=== PATIENT | male | born 2000 ===

== ENCOUNTER 2024-07-14 15:51 | Observation (INO) | payer SELFPAY ==
[2024-07-14 16:47] LABS: #Basophils Less than 0.03 10x3/uL (0.0-0.2); #Eosinophils 0.21 10x3/uL (0.0-0.5); #Monocytes 0.34 10x3/uL (0.0-1.1); #Neutrophils 1.72 10x3/uL (1.5-8.4); %Basophils 0.6 % (0.0-2.0); %Eosinophils 6.1 % (0.0-6.0); %Lymphocytes 33.7 % (18.0-47.0); %Monocytes 9.8 % (0.0-10.0); %Neutrophils 49.5 % (40.0-75.0); Hematocrit 45.4 % (38.8-50.0); Hemoglobin 15.4 g/dL (13.5-17.5); Mean Corpuscular HGB CONC 33.9 g/dL (32.0-36.0); Mean Corpuscular Hemoglobin 30.4 pg (27.0-33.0); Mean Corpuscular Volume 89.5 fL (81.2-95.1); Mean Platelet Volume 11.3 fL (7.4-10.4); Platelet Count 145 10x3/uL (150-450); RBC Distribution Width 11.9 % (11.5-14.5); Red Blood Cell (RBC) Count 5.07 10x6/uL (4.32-5.72); White Blood Cell (WBC) Count 3.47 10x3/uL (3.5-10.5)
[2024-07-14 16:59] LABS: Actual Bicarbonate (HCO3v) 23.6 mEq/L (22-28); Analyzer IN Cardio CS ER; Base Excess -2.6 mEq/L (-2 - +2); Calcium, Ionized (venous) 1.16 mmol/L (1.16-1.32); Chloride (VBG) 96 mmol/L (98-106); Critical Notified Whom: vicsa; Hematocrit-VBG 48 % (42.0-52.0); Hemoglobin (Hb) 16.3 g/dL (13.2-17.3); Potassium (VBG) 4.14 mmol/L (3.70-5.30); Puncture Site Other Site; RapidComm Collect By LAB; Sodium 136 mmol/L (133-146); pH (venous) 7.327 (7.32-7.43)
[2024-07-14 17:04] LABS: ALT (SGPT) 20 U/L (8-55); AST (SGOT) 25 U/L (5-34); Alkaline Phosphatase 65 U/L (40-110); Anion Gap 16 mmol/L (10-20); BUN (Urea Nitrogen) 14 mg/dL (8.9-20.6); Bilirubin, Total 0.3 mg/dL (0.2-1.2); Calc. Creatinine Clearance 0 mL/min (70-130); Calcium 9.2 mg/dL (7.8-10.44); Carbon Dioxide 24 mmol/L (22-29); Chloride 99 mmol/L (98-107); Estimated GFR 84; Globulin 3.1 g/dL (2.4-3.5); Glucose 279 mg/dL (70-105); Potassium 4.2 mmol/L (3.5-5.1); Protein, Total 7.1 g/dL (6.0-8.3); Sodium 135 mmol/L (136-145)
[2024-07-14 17:07] LABS: Troponin I Less than 0.010 ng/mL (< 0.028)
[2024-07-14] MEDS ORDERED: Ketorolac Tromethamine 30 MG (1 mL) VIAL ONE (17:16)
[2024-07-14] MEDS ORDERED: Senokot S 8.6-50 MG TAB PO PRN (17:44)
[2024-07-14] MEDS ORDERED: Ondansetron PF 4 MG/2 ML Vial IVP PRN (17:44)
[2024-07-14] MEDS ORDERED: Dextrose 50% Abboject 50 ML SYRINGE SLOW IVP PRN (17:47)
[2024-07-14] MEDS ORDERED: Glucagon 1 MG/ML KIT IM PRN (17:47)
[2024-07-14] MEDS ORDERED: Dextrose 5% in Water 1,000 ML IV PRN (17:47)
[2024-07-14 18:27] VITALS: BMI 24.5
[2024-07-14 18:28] LABS: Anion Gap 13 mmol/L (10-20); BUN (Urea Nitrogen) 13 mg/dL (8.9-20.6); Calc. Creatinine Clearance 147 mL/min (70-130); Carbon Dioxide 22 mmol/L (22-29); Chloride 105 mmol/L (98-107); Estimated GFR 107; Glucose 247 mg/dL (70-105); Potassium 4.4 mmol/L (3.5-5.1); Sodium 136 mmol/L (136-145)
[2024-07-14] MEDS: Sodium Chloride 0.9% 1,000 ML IV SCH (19:36)
[2024-07-14] MEDS: Lantus 1000 UNITS/10 ML VIAL SC SCH (19:42)
[2024-07-14] MEDS: Oseltamivir 75 MG CAP PO SCH (19:42)
[2024-07-14] MEDS: Famotidine 20 MG TAB PO SCH (19:42)
[2024-07-14] MEDS: Insulin Lispro 100 UNIT/ML 10 ML VIAL SC PRN (19:47)
[2024-07-14 20:16] LABS: Anion Gap 15 mmol/L (10-20); BUN (Urea Nitrogen) 13 mg/dL (8.9-20.6); Calc. Creatinine Clearance 143 mL/min (70-130); Calcium 8.2 mg/dL (7.8-10.44); Carbon Dioxide 20 mmol/L (22-29); Chloride 104 mmol/L (98-107); Estimated GFR 103; Glucose 282 mg/dL (70-105); Potassium 4.3 mmol/L (3.5-5.1); Sodium 135 mmol/L (136-145)
[2024-07-14] MEDS: Guaifenesin DM 100-10/5 ML UDCUP PO PRN (20:28)
[2024-07-14 21:02] LABS: Bilirubin Neg (Negative); Blood, Urine Negative (Negative); Clarity Clear (Clear); Glucose, Urine (Dipstick) >=1000 mg/dL (Negative); Ketone, Urine 150 mg/dL (Negative); Leukocyte Negative (Negative); Nitrite Negative (Negative); Protein, Urine (Dipstick) Negative (Neg-Trace); Urobilinogen Normal mg/dL (Less than 2)
[2024-07-14 21:13] LABS: Bacteria/HPF None Seen HPF (None Seen); RBC/HPF None Seen HPF (0-3); Squamous Epithelial 0-3 HPF (0-3); WBC/HPF None Seen HPF (0-3)
[2024-07-15] MEDS: Acetaminophen 325 MG TAB PO PRN (00:24)
[2024-07-15 01:05] LABS: Critical Call Chemistry NUR.RAF@0105; Glucose 546 mg/dL (70-105)
[2024-07-15] MEDS: Insulin Lispro 100 UNIT/ML 10 ML VIAL SC SCH ×2 (01:35→17:38)
[2024-07-15] MEDS: Insulin Lispro 100 UNIT/ML 10 ML VIAL SC PRN (04:02)
[2024-07-15 04:53] LABS: Mean Platelet Volume 11.8 fL (7.4-10.4); Platelet Count 135 10x3/uL (150-450)
[2024-07-15 04:54] LABS: #Basophils 0.03 10x3/uL (0.0-0.2); #Eosinophils 0.17 10x3/uL (0.0-0.5); #Monocytes 0.37 10x3/uL (0.0-1.1); #Neutrophils 1.95 10x3/uL (1.5-8.4); %Basophils 0.8 % (0.0-2.0); %Eosinophils 4.4 % (0.0-6.0); %Monocytes 9.5 % (0.0-10.0); Hematocrit 37.7 % (38.8-50.0); Hemoglobin 13.6 g/dL (13.5-17.5); Mean Corpuscular HGB CONC 36.1 g/dL (32.0-36.0); Mean Corpuscular Hemoglobin 32.1 pg (27.0-33.0); Mean Corpuscular Volume 88.9 fL (81.2-95.1); RBC Distribution Width 11.9 % (11.5-14.5); Red Blood Cell (RBC) Count 4.24 10x6/uL (4.32-5.72); White Blood Cell (WBC) Count 3.89 10x3/uL (3.5-10.5)
[2024-07-15] MEDS: FLU (Fluarix Triv) TS24-25(6MOS UP)/PF 45 MCG/0.5 ML Syringe IM ONE (10:20)
[2024-07-15] MEDS: Enoxaparin 40 MG (0.4 mL) SYRINGE SC SCH (10:21)
[2024-07-15] MEDS ORDERED: Insulin Lispro 100 UNIT/ML 10 ML VIAL SC SCH (17:00)
[2024-07-15] MEDS: Lantus 1000 UNITS/10 ML VIAL SC SCH (20:22)
[2024-07-16 11:46] VITALS: BP 132/74; TEMP 98.6
== END 2024-07-16 13:07 | disposition home or self-care (01) ==
LOC: CSHERS 15:51 → CSHTELE 17:47
PROVIDERS: ADMIT Hospitalist; ATTEND Family Medicine
DX: J10.1 Influenza due to other identified influenza virus with other respiratory manifestations (principal); E10.65 Type 1 diabetes mellitus with hyperglycemia; R42 Dizziness and giddiness; R03.0 Elevated blood-pressure reading, without diagnosis of hypertension; E86.0 Dehydration; E78.5 Hyperlipidemia, unspecified; Z98.890 Other specified postprocedural states; Z91.013 Allergy to seafood; Z79.899 Other long term (current) drug therapy; Z79.4 Long term (current) use of insulin
CPT/HCPCS: 36415; 36416; 71045; 80053; 81001; 82010; 82805; 82947; 83605; 84484; 85025; 87081; 87428; 87430; 93005; 96372; 96374; G0378; J1650; J1815; J1885; J7030